=== PATIENT | male | born 1995 | race Caucasian/White ===

== ENCOUNTER → 2021-10-04 17:36 | Outpatient (BNVA) | payer OTHER, SELFPAY | PROVIDERS: Family Provider Family Medicine; Visit Provider Registered Nurse Neonatal Intensive Care | DX: M54.9 Dorsalgia, unspecified (principal) | CPT/HCPCS: 81000 ==

== ENCOUNTER 2022-01-27 19:26 | Emergency (ER) | payer OTHER, SELFPAY ==
[2022-01-27 19:30] VITALS: BP 190/103; PULSE 79; RESP 19; TEMP 36.9; O2SAT 97; BMI 30.8
[2022-01-27 19:39] VITALS: BP 149/96; PULSE 67; RESP 20; TEMP 36.6; O2SAT 98
--- NOTE | 2022-01-27 19:43 | ECG_ITS ---
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 Measurements Intervals [place] Rate: 78 P: 32 NM: 182 QRS: 47 QRSD: 101 T: 24 QT: 355 QTc: 404 Interpretive Statements SINUS RHYTHM No previous ECG available for comparison Electronically Signed On 01-28-2022 10:52:56 CDT by Lindsey Johnson M.D. [id number]
--- NOTE | 2022-01-27 19:45 | XRR_ITS ---
PROCEDURE INFORMATION: Exam: XR Chest Exam date and time: 01/27/2022 7:50 PM Age: 26 years old Clinical indication: Pain; Radiating; Additional info: Chest pain TECHNIQUE: Imaging protocol: Radiologic exam of the chest. Views: 1 view. COMPARISON: No relevant prior studies available. FINDINGS: Lungs: Mild elevation of the left hemidiaphragm. No focal consolidation. No pulmonary edema. Pleural spaces: No pleural effusion. No pneumothorax. Heart/Mediastinum: The cardiac silhouette is mildly enlarged. Mediastinal contours are unremarkable. Bones/joints: Unremarkable for age. XR/XR chest 1V portable 64120 IMPRESSION: 1. No acute cardiopulmonary process. 2. Incidental/nonacute findings are listed in the report.
[2022-01-27 20:16] LABS: Basophils # 0.1 10^3/uL (0.0-0.1); Basophils % 0.6 %; Eosinophils # 0.1 10^3/uL (0.0-0.8); Eosinophils % 1.4 %; Hematocrit 46.8 % (42.0-52.0); Hemoglobin 15.3 g/dL (11.7-16.6); Lymphocytes # 2.2 10^3/uL (0.8-4.8); Mean Corpuscular HGB Conc 32.7 g/dL (30.0-36.0); Mean Corpuscular Hemoglobin 30.7 pg (28.0-34.0); Mean Platelet Volume 11.6 fL (7.4-10.4); Monocytes # 0.6 10^3/uL (0.2-0.9); Monocytes % 5.9 %; Neutrophils # 6.47 10^3/uL (1.8-7.7); Neutrophils % 68.8 %; Nucleated Red Blood Cells % 0 %; Platelet Count 203 10^3/cmm (130-400); Red Blood Count 4.98 10^6/uL (4.1-5.3); Red Cell Distribution Width 11.8 % (12.1-15.1); White Blood Count 9.4 10^3/uL (4.0-10.0)
--- NOTE | 2022-01-27 20:38 | W.ED.EXTPRO ---
HPI - Extremity Problem General: Chief complaint: Extremity Injury, Upper Stated complaint: L arm and L shoulder pain, tingling Time Seen by Provider: 01/27/22 19:50 Source: patient and family History of Present Illness: 26-year-old male presenting with left shoulder pain. He says that shoulder pain is deep, near his posterior left upper chest and shoulder and radiates into his arm. He was experiencing some paresthesias into his arm as well. He denies significant shortness of breath. He has had episodes of diaphoresis, no nausea or vomiting. He has no prior cardiac history. MD Complaint: extremity pain Onset (ago): hour(s) Pain Consistency: constant Location: left Associated symptoms: Reports chest pain; Deny fever(s) or rash Review of Systems Const: Denies: fever(s) Eyes: Denies: change in vision or blurry vision ENMT: Denies: throat pain Card: Reports: chest pain Resp: Denies: dyspnea, productive cough or non-productive cough GI: Reports: nausea; Denies: abdominal pain or vomiting Musc: Denies: neck pain Skin/Breast: Denies: rash Neuro: Denies: headache(s) PFSH ED PFSH: Social History Smoking and tobacco status: current every day smoker (CHEW,VAPE) Physical Exam Const: COMMON NORMALS: no acute distress GENERAL APPEARANCE: cooperative; not ill appearing HENMT: COMMON NORMALS: normocephalic, atraumatic and Normal external nose present HEAD & SCALP: normocephalic and atraumatic FACE & SINUS: normal facial exam and face symmetric NOSE: Normal external nose present Eye: COMMON NORMALS: Equal, round and reactive pupils present and EOMs intact bilaterally PUPIL: Yes Equal, round and reactive pupils present Neck/C-Spine: GENERAL: Yes trachea midline Chest: CHEST: Yes Symmetrical chest wall rise Resp: COMMON NORMALS: normal respiratory effort, No retractions, No use of accessory muscles and clear to auscultation bilaterally AUSCULTATION: clear to auscultation bilaterally Cardio: COMMON NORMALS: regular rate and regular rhythm RATE: regular rate RHYTHM: regular rhythm GI: COMMON NORMALS: Normal to inspection, nondistended, normoactive bowel sounds present Extremity: COMMON NORMALS: no pedal edema Neuro: BRITTANY COMA SCALE: document GCS findings [place] coma scale eye opening: Spontaneous [place] coma scale verbal response: Orientated Brittany coma scale motor response: Obey commands Brittany coma scale total score: 15 SENSORY EXAM: Yes extremities (intact) Psych: COMMON NORMALS: speech normal SPEECH: Yes normal speech Skin: COMMON NORMALS: no rashes or lesions noted GENERAL SKIN EXAM: no rashes or lesions noted Course Vital Signs: Vital signs: Vital Signs Temperature 97.8 F 01/27/22 19:39 Pulse Rate 64 01/28/22 00:02 Respiratory Rate 16 01/28/22 00:02 Blood Pressure 149/96 01/27/22 19:39 Pulse Oximetry 98 01/28/22 00:02 Oxygen Delivery Me thod 01/27/22 19:39 MDM - Extremity (Nontraumatic) Medical Decision Making Pain improved after morphine and Zofran here. Vitals have remained normal. CBC is normal. BMP is normal. Liver enzymes are normal. EKG is normal sinus rhythm with no acute ST changes normal axis and intervals. Rate is 60. Troponin remains 6 at 2 hours. D-dimer is not elevated. Chest x-ray reveals no infiltrates or pneumothorax. No rib fractures. Visualized shoulder is normal. In light of negative work-up would consider a radiculopathy or neuritis. We will treat with a short course of steroids and pain control and have the patient follow-up. Lab Data : 01/27/22 20:07 01/27/22 21:13 Radiology Impressions Chest X-Ray 01/27/22 19:45 IMPRESSION: 1. No acute cardiopulmonary process. 2. Incidental/nonacute findings are listed in the report. Laboratory Results WBC 9.4 10^3/uL (4.0-10.0) 01/27/22 20:07 RBC 4.98 10^6/uL (4.1-5.3) 01/27/22 20:07 Hgb 15.3 g/dL (11.7-16.6) 01/27/22 20:07 Hct 46.8 % (42.0-52.0) 01/27/22 20:07 MCV 94.0 fl (80-94) 01/27/22 20:07 MCH 30.7 pg (28.0-34.0) 01/27/22 20:07 MCHC 32.7 g/dL (30.0-36.0) 01/27/22 20:07 RDW 11.8 % (12.1-15.1) L 01/27/22 20:07 Plt Count 203 10^3/cmm (130-400) 01/27/22 20:07 MPV 11.6 fL (7.4-10.4) H 01/27/22 20:07 Neut % (Auto) 68.8 % 01/27/22 20:07 Lymph % (Auto) 23.0 % 01/27/22 20:07 [place] % (Auto) 5.9 % 01/27/22 20:07 Eos % (Auto) 1.4 % 01/27/22 20:07 Baso % (Auto) 0.6 % 01/27/22 20:07 Neut # (Auto) 6.47 10^3/uL (1.8-7.7) 01/27/22 20:07 Lymph # (Auto) 2.2 10^3/uL (0.8-4.8) 01/27/22 20:07 [place] # (Auto) 0.6 10^3/uL (0.2-0.9) 01/27/22 20:07 Eos # (Auto) 0.1 10^3/uL (0.0-0.8) 01/27/22 20:07 Baso # (Auto) 0.1 10^3/uL (0.0-0.1) 01/27/22 20:07 Nucleated RBC % (auto) 0 % 01/27/22 20:07 Nucleated RBCs # 0.0 /100WBC 01/27/22 20:07 D-Dimer 0.28 ug/mIFEU (0-0.59) 01/27/22 20:20 Sodium 140 mmol/L (136-145) 01/27/22 21:13 Potassium 3.9 mmol/L (3.5-5.1) 01/27/22 21:13 Chloride 103 mmol/L (98-107) 01/27/22 21:13 Carbon Dioxide 23 mmol/L (22-29) 01/27/22 21:13 Anion Gap 17.9 (5-19) 01/27/22 21:13 BUN 16 mg/dL (6-20) 01/27/22 21:13 Creatinine 1.1 mg/dL (0.7-1.2) 01/27/22 21:13 GFR Calculation 79.7 mL/min (90-130) L 01/27/22 21:13 Glucose 108 mg/dL (65-115) 01/27/22 21:13 Calculated Osmolality 292 mOsm/kg (285-295) 01/27/22 21:13 Calcium 9.3 mg/dL (8.5-10.5) 01/27/22 21:13 Total Bilirubin 0.5 mg/dL (0.15-1.2) 01/27/22 21:13 AST 17 U/L (0-40) 01/27/22 21:13 ALT 17 U/L (0-41) 01/27/22 21:13 Alkaline Phosphatase 68 U/L (40-130) 01/27/22 21:13 Troponin T Baseline 6 ng/L (0-15) 01/27/22 20:07 Troponin T 120 Minute 6.00 ng/L (0-15) 01/27/22 22:27 Delta Troponin T 0 ABS# (0-10) 01/27/22 22:27 Total Protein 6.9 g/dL (6.6-8.7) 01/27/22 21:13 Albumin 4.4 g/dL (3.5-5.2) 01/27/22 21:13 Globulin 2.5 g/dL (1.3-4.6) 01/27/22 21:13 Discharge Plan Discharge Patient Disposition: Home Clinical Impression: Neuritis Condition: Stable Prescriptions: New hydrocodone-acetaminophen 5-325 mg tablet 1 tab PO Q8H PRN (Reason: pain) Qty: 7 0RF Medrol (Lauro) 4 mg tablets,dose pack See Rx Instructions .ROUTE .COMPLEX Qty: 21 0RF Rx Instructions: orally per package directions No Action cyclobenzaprine 5 mg tablet 5 mg PO TID PRN (Reason: muscle spasm) Qty: 20 0RF Discharge Orders: Discharge ED (Routine); Ordered 01/27/22 Ordered By: Orlando Pisano Patient Instructions: Opioid Safety, Pain Management Activity Restrictions/Additional Instructions: Medication as directed. Return for shortness of breath, worsening pain despite treatment, fever, other concerning symptoms. See your doctor next week as more outpatient testing may be needed. Coding Level of Care Code ED Process Engineering Manager for Chg Fwd Exam Comprehensive
[2022-01-27 20:45] VITALS: RESP 18; O2SAT 96
[2022-01-27] MEDS: ondansetron 2 mg/ML SDV 2 mL 4 MG IVP (20:45)
[2022-01-27] MEDS: morphine 4 mg/mL SDV 1 mL IVP (20:45)
[2022-01-27 20:48] LABS: Troponin(5th) Baseline 6 ng/L (0-15)
[2022-01-27 20:59] LABS: D Dimer 0.28 ug/mIFEU (0-0.59)
--- NOTE | 2022-01-27 21:45 | ECG_ITS ---
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 Measurements Intervals [place] Rate: 57 P: 35 MI: 208 QRS: 62 QRSD: 102 T: 44 QT: 413 QTc: 404 Interpretive Statements SINUS BRADYCARDIA Compared to ECG 01/27/2022 19:43:32 Sinus rhythm no longer present Electronically Signed On 01-28-2022 10:56:06 CDT by Lindsey Johnson M.D. [id number]
[2022-01-27 21:48] LABS: Alanine Aminotransferase 17 U/L (0-41); Albumin Level 4.4 g/dL (3.5-5.2); Alkaline Phosphatase 68 U/L (40-130); Aspartate Amino Transferase 17 U/L (0-40); Blood Urea Nitrogen 16 mg/dL (6-20); Calcium 9.3 mg/dL (8.5-10.5); Carbon Dioxide 23 mmol/L (22-29); Chloride 103 mmol/L (98-107); Globulin 2.5 g/dL (1.3-4.6); Glomerular Filtration Rate 79.7 mL/min (90-130); Glucose 108 mg/dL (65-115); Osmolality Calculated 292 mOsm/kg (285-295); Sodium 140 mmol/L (136-145); Total Bilirubin 0.5 mg/dL (0.15-1.2); Total Protein 6.9 g/dL (6.6-8.7)
[2022-01-27 21:49] LABS: Anion Gap 17.9 (5-19); Potassium 3.9 mmol/L (3.5-5.1)
[2022-01-27 23:14] LABS: Troponin 5 2HR Delta 0 ABS# (0-10)
[2022-01-28 00:02] VITALS: PULSE 64; RESP 16; O2SAT 98
== END 2022-01-28 00:03 | disposition home or self-care (01) ==
PROVIDERS: Emergency Provider Emergency Medicine
DX: M79.2 Neuralgia and neuritis, unspecified (principal); R00.1 Bradycardia, unspecified; R07.9 Chest pain, unspecified
CPT/HCPCS: 71045; 80053; 84484; 85025; 85378; 93005; 96374; 96375; 99285; J2270; J2405; J2930

== ENCOUNTER 2024-01-30 08:07 | Emergency (ER) | payer OTHER, SELFPAY ==
[2024-01-30 08:20] VITALS: BP 150/84; PULSE 84; RESP 17; TEMP 36.7; O2SAT 99
--- NOTE | 2024-01-30 09:02 | W.ED.WOUNDLC ---
HPI - Wound/Laceration General: Chief Complaint: Wound/Laceration Stated Complaint: Lt hand lac Time Seen by Provider: 01/30/24 08:20 Source: patient Mode of arrival: ambulatory Limitations: no limitations History of Present Illness: 28-year-old male who states that he was having an cutting down a lemon slipped and lacerated his left hand he has a 4 cm laceration to the dorsum of left hand bleeding controlled he denies any pain has full range of motion unsure when his last tetanus was. Associated symptoms: Denies chills, fever(s), nausea or vomiting Related Data Previous Rx's Medication Instructions Recorded cyclobenzaprine 5 mg tablet 5 mg PO TID PRN muscle spasm #20 10/04/21 tabs hydrocodone 5 mg-acetaminophen 325 1 tab PO Q8H PRN pain #7 tabs 01/27/22 mg tablet methylprednisolone 4 mg tablets in See Rx Instructions PO .COMPLEX 01/27/22 a dose pack (Medrol (Lauro)) #21 ea Allergies Allergy/AdvReac Type Severity Reaction Status Date / Time No Known Allergies Allergy Unverified 10/04/21 17:26 Review of Systems Const: Denies: fever(s), chills, body aches or change in appetite ENMT: Denies: throat pain or dental pain Card: Denies: chest pain Resp: Denies: dyspnea GI: Denies: abdominal pain, nausea, vomiting or diarrhea Musc: Denies: neck pain or back pain Skin/Breast: Denies: rash All/Imm: Denies: urticaria PFSH ED PFSH: Social History Smoking and tobacco/nicotine status: current every day tobacco/nicotine user (CHEW,VAPE) Physical Exam Const: COMMON NORMALS: no acute distress, patient oriented x3 and healthy appearing HENMT: COMMON NORMALS: normocephalic and atraumatic HEAD & SCALP: normocephalic and atraumatic Neck/C-Spine: COMMON NORMALS: full ROM and supple Chest: COMMONS NORMALS: normal inspection of the chest Resp: COMMON NORMALS: normal respiratory effort Cardio: COMMON NORMALS: regular rate RATE: regular rate Extremity: COMMON NORMALS: full ROM NARRATIVE EXTREMITY EXAM: 4 cm laceration to dorsum of right hand no tendon involvement bleeding is controlled Neuro: COMMON NORMALS: patient oriented x3, moves all extremities and no focal motor deficits Psych: COMMON NORMALS: mental status grossly normal, Normal thought process present and cooperative THOUGHT PROCESS: Normal thought process present Skin: COMMON NORMALS: no rashes or lesions noted GENERAL SKIN EXAM: no rashes or lesions noted Procedures Laceration Laceration 1: Site: hand Side (If applicable): left Size (cm): 4 Description: linear Depth: simple, single layer Local Anesthetic: lidocaine 1% Amount of anesthesia used (mL): 6 Pre-repair: wound explored Skin layer closed with: nylon Size (cm): 4-0 Number of sutures: 6 Technique: simple, interrupted Course Vital Signs: Vital signs: Vital Signs Temperature 98.1 F 01/30/24 08:20 Pulse Rate 84 01/30/24 08:20 Respiratory Rate 17 01/30/24 08:20 Blood Pressure 150/84 01/30/24 08:20 Pulse Oximetry 99 01/30/24 08:20 Oxygen Delivery Me thod Room Air 01/30/24 08:20 MDM - Wound/Laceration Medical Decision Making Patient presents for laceration left hand did repair laceration with sutures irrigated thoroughly no tendon involvement sensation and strength intact did update his tetanus he is to have sutures removed in 10 days Medical Records I reviewed the patient's medical records. No radiology studies performed this visit Discharge Plan Discharge Patient Disposition: Home Clinical Impression: Laceration Condition: Stable Prescriptions: No Action cyclobenzaprine 5 mg tablet 5 mg PO TID PRN (Reason: muscle spasm) Qty: 20 0RF hydrocodone-acetaminophen 5-325 mg tablet 1 tab PO Q8H PRN (Reason: pain) Qty: 7 0RF Medrol (Lauro) 4 mg tablets,dose pack See Rx Instructions .ROUTE .COMPLEX Qty: 21 0RF Rx Instructions: orally per package directions Discharge Orders: Discharge ED (Routine); Ordered 01/30/24 Ordered By: Foster Marmolejo Discharge Diet: Advance as tolerated Discharge Activity: Resume usual activity Patient Instructions: Care For Your Stitches (ED), Laceration (ED) Coding Level of Care Code ED Decorating Consultant for Uli Akers
[2024-01-30] MEDS: tetanus-dipt-pertussis 0.5 mL SDV IM (09:05)
[2024-01-30 09:18] VITALS: BP 147/82; PULSE 80; O2SAT 99
== END 2024-01-30 09:18 | disposition home or self-care (01) ==
PROVIDERS: Emergency Provider Emergency Medicine
DX: S61.412A Laceration without foreign body of left hand, initial encounter (principal); W26.0XXA Contact with knife, initial encounter; Z72.0 Tobacco use
CPT/HCPCS: 12002; 90471; 90715; 99282